=== PATIENT | female | born 1955 | race Caucasian/White ===

== ENCOUNTER → 2017-03-18 | Outpatient (CLI) | payer BC ==
--- NOTE | 2017-03-18 12:01 | KCIC ---
EXAM: Chest, 2 views. HISTORY: Cough. COMPARISON: None. FINDINGS: Frontal and lateral views of the chest are obtained. There is no infiltrate, effusion or pneumothorax. The heart is normal in size. IMPRESSION: No acute pulmonary finding. Electronically signed by: Svitlana Brown MD (03/18/2017 11:58 AM) [id number]
== END | disposition home or self-care (01) ==
LOC: KCIC 11:41
PROVIDERS: ATTEND Nurse Practitioner Family
DX: R05 Cough (principal)
CPT/HCPCS: 71020

== ENCOUNTER → 2017-04-18 | Outpatient (CLI) | payer BC ==
--- NOTE | 2017-04-18 11:46 | CARD ---
APPROVED REPORT EXAM: Two-dimensional and M-mode echocardiogram with Doppler and color Doppler. Other Information Quality : Good Rhythm : EctopyNSR INDICATION Mitral Valve Disease 2D DIMENSIONS RVDd2.2 (2.9-3.5cm)Left Atrium(2D)4.4 (1.6-4.0cm) IVSd0.9 (0.7-1.1cm)Aortic Root(2D)2.7 (2.0-3.7cm) LVDd5.4 (3.9-5.9cm)LVOT Diameter2.0 (1.8-2.4cm) PWd1.2 (0.7-1.1cm)LVDs4.2 (2.5-4.0cm) FS (%) 21.0 %SV58.9 ml LVEF(%)45.0 (>50%) Aortic Valve AoV Peak William.257.9cm/sAoV VTI60.3cm AO Peak GR.28.0mmHgLVOT Peak William.63.6cm/s LVOT VTI 12.81cmAO Mean GR.16mmHg RM (VMAX)0.50uq4IBF (VTI)1.00cm2 AI P 1/2 [id number] Mitral Valve MV E Ukksjeaz991.8cm/sMV DECEL [id number] MV A Pxtnhchq611.7cm/sMV [id number] E/A Ratio1.0MVA (PHT)3.29cm2 TDI E/Lateral E'24.3E/Medial E'24.7 Pulmonary Vein S1 Zjvfaebp29.5cm/sD2 Qttvwdzt76.6cm/s LEFT VENTRICLE The left ventricle is normal size. There is normal left ventricular wall thickness. The systolic func tion is mildly impaired. The Ejection Fraction is 45-50%. There is normal LV segmental wall motion. T here is mild global hypokinesis of the left ventricle. Transmitral Doppler flow pattern is Grade I-ab normal relaxation pattern. RIGHT VENTRICLE The right ventricle is normal size. The right ventricular systolic function is normal. ATRIA The left atrium is mildly dilated. The right atrium size is normal. The interatrial septum is intact with no evidence for an atrial septal defect or patent foramen ovale as noted on 2-D or Doppler imagi ng. AORTIC VALVE The aortic valve is calcified and displays decreased opening. Doppler and Color Flow revealed mild ao rtic regurgitation. Calculated aortic valve area is 1.0 cm2 (likely underestimated) with maximum pres sure gradient of 28 mmHg and mean pressure gradient of 16 mmHg suggestive of mild to moderate aortic stenosis. MITRAL VALVE The mitral valve is calcified but opens well. There is no evidence of mitral valve prolapse. There is no mitral valve stenosis. Doppler and Color-flow revealed mild mitral regurgitation. TRICUSPID VALVE The tricuspid valve is normal in structure and function. Doppler and Color Flow revealed no tricuspid valve regurgitation noted. There is no tricuspid valve stenosis. PULMONIC VALVE Doppler and Color Flow revealed no pulmonic valvular regurgitation. There is no pulmonic valvular ronaldo nosis. GREAT VESSELS The aortic root is normal in size. The ascending aorta is normal in size. The IVC is normal in size a nd collapses >50% with inspiration. PERICARDIAL EFFUSION There is no evidence of significant pericardial effusion. Critical Notification Critical Value: No <Conclusion> The systolic function is mildly impaired. The Ejection Fraction is 45-50%. There is normal LV segmental wall motion. There is mild global hypokinesis of the left ventricle. Calculated aortic valve area is 1.0 cm2 (likely underestimated) with maximum pressure gradient of 28 mmHg and mean pressure gradient of 16 mmHg suggestive of mild to moderate aortic stenosis.
== END | disposition home or self-care (01) ==
LOC: ECHO 10:52
PROVIDERS: ATTEND Internal Medicine Cardiovascular Disease
DX: I08.0 Rheumatic disorders of both mitral and aortic valves (principal)
CPT/HCPCS: 93306